=== PATIENT | male | born 1960 | race African-American/Black ===

== ENCOUNTER 2017-02-06 18:36 | Inpatient (IN) | payer OTHER ==
[~2017-02-06] VITALS: Ht 170.2 cm; Wt 56.7 kg
--- NOTE | ~2017-02-06 | H ---
[facility] [place] [address] HISTORY AND PHYSICAL Name: SERENA BURT Room #: 534-P ADM IN M.R.#: [id number] Admission: 02/06/17 Attend Phys: Adele De Los Santos MD Discharge: Date of : 60 Report #: [id number] THIS REPORT FOR: //name// CC: FAM unknown Adele De Los Santos DATE OF SERVICE: 02/06/2017 ATTENDING PHYSICIAN: Adele De Los Santos M.D. PRIMARY CARE PHYSICIAN: None. CHIEF COMPLAINT: Weakness. HISTORY OF PRESENT ILLNESS: The patient is a 56-year-old -[place] male who apparently has been having episodes of bilateral lower and upper extremity numbness that is associated with weakness. He finds it very difficult to describe, but he says this has been coming and going for about 2 months. They are really with no precipitating episode. It has affected all his extremities. He has been able to walk at times. He denies any weakness that does cause him to fall or causes legs to give out. He may have some mild mental retardation as he says he has been on disability his whole adult life, but his sister helps to take care of all of his finances. 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 He does live alone. Apparently, his family became worried because of these episodes and he had to be convinced to come to the ER. He does not have a primary care provider and he says he has never been sick in the past or had any significant past medical history. Apparently, upon arrival to the ER, he was able to ambulate from the car to the ER entrance and again, he transferred himself from the wheelchair to the bed without difficulty, but once he was in bed and when the ER was assessing his NIH score, he could not move his extremities. He also reports that he has not had a bowel movement, he thinks in a month. Again, I do not know how accurate his history is. He says he has been eating regularly. PAST MEDICAL HISTORY: None. 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 ALLERGIES: None. HOME MEDICATIONS: None. SOCIAL HISTORY: The patient smokes half pack of cigarettes per day. He has been smoking since the age of 21. He denies any drug use. He does drink an occasional beer. He lives alone. He is on disability. 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 He gets around with a bus or on his bike, but he has been [facility] [address] [place] [address] HISTORY AND PHYSICAL Name: SERENA BURT Room #: 534-P [facility] IN [facility]#: [id number] Admission: 02/06/17 Attend Phys: Adele De Los Santos MD Discharge: Date of : 60 Report #: [id number] unable to ride a bike for the last few months because of his weakness. FAMILY HISTORY: His mother of old age. His father of old age. REVIEW OF SYSTEMS: 12-point review of systems was reviewed with the patient, otherwise negative unless stated in the HPI. PHYSICAL EXAMINATION: GENERAL: The patient is an alert male in no acute distress. VITAL SIGNS: Temperature is 36.6, heart rate 68, respirations 16, blood pressure is 138/88, oxygen 98% on room air. HEENT: PERRLA. Sclerae are nonicteric. Oral mucosa is pink and moist. NECK: Supple, no JVD noted. CARDIOVASCULAR: Normal S1, S2. No murmurs, rubs or gallops. RESPIRATORY: Breath sounds are clear bilaterally. No wheezing or rhonchi. Breathing is nonlabored. ABDOMEN: Soft and nondistended. He was tender in the left lower quadrant. Bowel sounds are positive. VASCULAR: No edema noted. Pedal pulses are 2+. NEUROLOGIC: The patient is alert and oriented x 3, but does have somewhat slow processing and slow responses to questions. He does have weakness in bilateral upper and lower extremities, although he was able to hold his arms up after I raised them and to perform [id number]-[id number] testing. He was very slow and deliberate about this, but he was unable to lift his arms up off the bed on his own. He is rubbing his fingers together often stating that his finger tips are numb. He initially was unable to raise his legs up off the bed and did have to use his arms to try to lift his leg up. At this time, he was moving his arms without any difficulty. Once I raised his legs off the bed, he was able to at least hold his legs up for at least 5 seconds. He does have decreased sensation in the lower extremities. When assessing for sensation, he said he did not know which was right or left, but he was able to point to which leg I was touching, so I think he just did not know the difference between which was right and which was left. LABORATORY DATA AND DIAGNOSTICS: Sodium is 141, potassium 4.0, BUN 16, creatinine 0.8, glucose 115, troponins negative. WBC is 7.7, hemoglobin 14.3, platelets 229. CT of the head was negative. An EKG showed sinus rhythm. ASSESSMENT AND PLAN: 1. Bilateral upper and lower extremity numbness and weakness. This is a rather odd presentation. At times, he is able to move his arms and legs. At other times, he is not. His assessment has been variable. There may be some underlying psych or depression component as he does have a very flat affect. We cannot completely rule out stroke, so we will further evaluate with an MRI in the morning. We will also check for some nutritional deficiencies and check CK level. Check UA to rule out infection. We will also have Neurology evaluate [facility] [place] [place] [address] HISTORY AND PHYSICAL Name: SERENA BURT Room #: 534-P ADM IN ..#: [id number] Admission: 02/06/17 Attend Phys: Adele De Los Santos MD Discharge: Date of : 60 Report #: [id number] for any further recommendations and possible EMG testing if warranted. 2. Tobacco abuse. The patient has been advised to quit. 3. Constipation. Check KUB in the morning and start stool softeners. 4. Questionable mental retardation. We will try to get more information from his sister when she arrives later today regarding his mental status. 5. Deep venous thrombosis prophylaxis, place sequential compression devices. We will continue to follow the patient closely throughout the hospitalization and make changes based on clinical status. <ELECTRONICALLY SIGNED> By: SHANNON Solorio 02/07/17 [id number] [id number] SHANNON Solorio /nt
--- NOTE | ~2017-02-06 | EKG ---
[place] [address] [facility] [address] ELECTROCARDIOGRAM REPORT Name: BURTSERENA Room #: [facility] M.R.#: [id number] Admission: Attend Phys: Discharge: Date of : 60 Report #: [id number] THIS REPORT FOR: //name// [facility] ED Test Date: 2017-02-06 Test Time: 18:43:44 Pat Name: SERENA BURT Department: Room: Gender: M Wire Stitcher: Veronica LASSITER : 1960 Requested By: Elizabeth Yuan Order Number: [id number] MD: Measurements Intervals [place] Rate: 58 P: 12 MD: 192 QRS: -43 QRSD: 110 T: 65 QT: 397 QTc: 390 Interpretive Statements Sinus rhythm Probable left atrial enlargement Incomplete RBBB and LAFB ST elevation suggests acute pericarditis No previous ECG available for comparison [email or web address] By: 42 42 Epiphany MD Erik /EPI
[2017-02-06 18:40] VITALS: BP 138/88
[2017-02-06 19:46] LABS: ABSOLUTE NEUTROPHILS 4.5 thou/uL (1.4-8.2); BASOPHILS 1.2 % (0.0-2.0); EOSINOPHILS 4.7 % (0.0-3.0); HEMATOCRIT 42.8 % (42.0-52.0); HEMOGLOBIN 14.3 gm/dL (14.0-18.0); LYMPHOCYTES 27.1 % (24.0-44.0); MANUAL DIFF NO; MCH 29.6 pg (26.0-34.0); MCHC 33.4 g/dL (28.0-37.0); MCV 88.7 fL (80.0-100.0); MONOCYTES 8.2 % (1.0-8.0); PLATELET COUNT 229 thou/uL (150-400); POLYS 58.8 % (36.0-66.0); RBC 4.83 mil/uL (4.50-6.00); RDW 13.9 % (10.5-14.5); WBC 7.7 thou/uL (4.0-11.0)
[2017-02-06 19:47] LABS: CALCIUM 8.8 mg/dL (8.5-10.1); CREATININE 0.8 mg/dL (0.6-1.3)
[2017-02-06 20:43] VITALS: BP 128/76
[2017-02-06 21:00] VITALS: BP 123/65
[2017-02-07 05:51] LABS: URINE BILIRUBIN NEGATIVE (Negative); URINE BLOOD 1+ (Negative); URINE COLOR YELLOW; URINE GLUCOSE-RANDOM* NEGATIVE (Negative); URINE KETONES NEGATIVE (Negative); URINE LEUKOCYTES-REFLEX NEGATIVE (Negative); URINE PROTEIN (DIPSTICK) NEGATIVE (Negative); URINE UROBILINOGEN 0.2 E.U./dl (0.2-1.0)
[2017-02-07 06:09] LABS: HEMOGLOBIN 14.2 gm/dL (14.0-18.0); MCH 30.4 pg (26.0-34.0); MCHC 34.6 g/dL (28.0-37.0); MCV 87.8 fL (80.0-100.0); RBC 4.68 mil/uL (4.50-6.00); RDW 13.8 % (10.5-14.5); WBC 7.3 thou/uL (4.0-11.0)
[2017-02-07 06:22] LABS: CALCIUM 9.1 mg/dL (8.5-10.1); CREATININE 0.7 mg/dL (0.6-1.3); POTASSIUM 4.2 mmol/L (3.5-5.1)
[2017-02-07 06:51] LABS: FOLIC ACID 14.1 ng/mL (8.6-58.9)
[2017-02-07 07:11] LABS: CASTS None Seen /LPF (None Seen); SQUAMOUS None Seen /LPF (0-3); URINE RBC 0-2 Rare /HPF (0-2); URINE WBC-REFLEX 0-5 Rare /HPF (0-5)
[2017-02-07 07:12] LABS: CRYSTALS None Seen /LPF (None Seen)
[2017-02-07 07:47] VITALS: BP 108/69
[2017-02-07 10:40] LABS: CHOLESTEROL 204 mg/dL (<200); HDL CHOLESTEROL 54 mg/dL (>40); LDL CHOLESTEROL 137 mg/dL (<100); TC:HDL 3.8 Ratio (Not establshd); TRIGLYCERIDE 69 mg/dL (<150); VLDL 14 mg/dL (<40)
[2017-02-07] MEDS ORDERED: VITAMIN B-1100 M1 PO (11:37)
[2017-02-07] MEDS ORDERED: ASPIR 8181 MG PO (11:38)
[2017-02-07] MEDS ORDERED: FOLIC ACID1 MG PO (11:38)
[2017-02-07] MEDS ORDERED: GABAPENTIN 100100 MG PO (11:43)
[2017-02-07 11:56] VITALS: BP 108/69
[2017-02-08 00:10] LABS: GLYCOHEMOGLOBIN (HGB A1C) 5.2 % (4.8-5.6)
== END 2017-02-07 14:00 | disposition home or self-care (01) | DRG 74 ==
LOC: ER 18:36 → EROBS 20:43 → 5S 20:43
PROVIDERS: Emergency Medicine; Nurse Practitioner Acute Care; Psychiatry & Neurology Neurology
DX: G62.1 Alcoholic polyneuropathy (principal); F17.210 Nicotine dependence, cigarettes, uncomplicated; K59.00 Constipation, unspecified; F10.20 Alcohol dependence, uncomplicated; F04 Amnestic disorder due to known physiological condition; E78.5 Hyperlipidemia, unspecified; Z28.21 Immunization not carried out because of patient refusal; Z71.6 Tobacco abuse counseling; Z71.41 Alcohol abuse counseling and surveillance of alcoholic
CPT/HCPCS: 10086